=== PATIENT | male | born 1940 | race Asian ===

== ENCOUNTER 2018-01-25 12:41 | Emergency (ER) | payer OTHER ==
[~2018-01-25] VITALS: Ht 162.6 cm; Wt 65.8 kg
[~2018-01-25 12:41] MED LIST: ALL100T PO; ALLOPOW4 PO; ATEN-60 PO; BENA20TA14 PO; BENZAPRIL; CLOP75TA41 PO; FERR325T77 PO; MELO1TAB73 PO; OMEP20CA74 PO; PREVASTATIN
[2018-01-25 12:49] VITALS: BP 134/76
[2018-01-25] MEDS ORDERED: KETOROLAC TROMETH 30 MG/ML 1ML VIAL IM ONE (14:15)
[2018-01-25] MEDS: KETOROLAC TROMETH 30 MG/ML 1ML VIAL IM ONE (14:39)
== END 2018-01-25 15:02 | disposition home or self-care (01) ==
LOC: ER 12:43
DX: M25.562 Pain in left knee (principal); M19.90 Unspecified osteoarthritis, unspecified site; I25.10 Atherosclerotic heart disease of native coronary artery without angina pectoris; I10 Essential (primary) hypertension; Z98.61 Coronary angioplasty status; Z87.891 Personal history of nicotine dependence; Z79.899 Other long term (current) drug therapy; Z79.01 Long term (current) use of anticoagulants
CPT/HCPCS: 73562; 93005; 96372; 99284; J1885